=== PATIENT | male | born 1980 ===

== ENCOUNTER 2025-06-06 07:00 | Day surgery (SDC) | payer OTHER ==
[2025-05-29 08:08] VITALS: BP 114/79
[2025-05-29 08:45] LABS: URINE APPEARANCE Clear; URINE BILIRRUBIN Negative (NEGATIVE); URINE BLOOD Negative; URINE COLOR Yellow; URINE KETONE Negative (NEGATIVE); URINE LEUKOCYTE Negative; URINE NITRATE Negative; URINE PROTEIN Negative (NEGATIVE); URINE UROBILINOGEN 0.2 E.U./dl
[2025-05-29 09:05] LABS: BASO % 0.7 % (0.1-1.2); EOS # 0.21 (0.04-0.54); EOS % 2.9 % (0.7-7.0); LYMPH # 2.82 (1.18-3.74); LYMPH % 38.6 % (19.3-53.1); MEAN PLATELET VOLUME 10.10 fl (9.4-12.4); MONO # 0.77 (0.24-0.82); MONO % 10.5 % (4.7-12.5); NEUT # 3.43 (1.56-6.13); NEUT % 47.0 % (34.0-71.1); RED CELL DISTRIBUTION WIDTH 13.6 % (11.6-14.4)
[2025-05-29 09:15] LABS: INR 1.07
[2025-05-29 09:27] LABS: URINE BACTERIA 1.1 uL (0.0-1933); URINE CAST 0.43 uL (0.0-1.40); URINE EPITHELIAL CELLS 0.4 uL (0.0-38.8); URINE GLUCOSE >=1000 MG/DL (NEGATIVE); URINE RBC 1.1 uL (0.0-20.8); URINE WBC 0.2 uL (0.0-23.2)
[2025-05-29 09:56] LABS: ALT/SGPT 37.0 U/L (12-78); AST/SGOT 25.0 U/L (15-37); BILIRUBIN TOTAL 0.37 mg/dL (0.3-1.2); BUN CREA RATIO 29.0 (7.0-25.0); CREATININE SERUM 0.92 mg/dL (0.70-1.30); GFR 88.57; GLOBULINA 3.0 G/DL (2.4-3.5); GLUCOSE FASTING 93.0 mg/dL (65-100); OSMOLALITY SERUM 288.0 MOSM/KG (275-295)
[~2025-06-06] VITALS: Ht 175.3 cm; Wt 72.6 kg
[~2025-06-06 07:00] MED LIST: CARVEDILOL25 MG; ENTRESTO 49 MG1 EACH PO; INSPRA25 MG PO; JARDIANCE10 MG PO
[2025-06-06] MEDS ORDERED: LIDOCAINE HCL 1% 20 ML VIAL IJ ONE (12:00)
[2025-06-06] MEDS ORDERED: CEFAZOLIN SODIUM 1,000 MG VIAL IV ONE (12:00)
[2025-06-06] MEDS ORDERED: LIDOCAINE HCL 1%/EPINEPHRINE 20ML VIAL IJ ONE (12:00)
== END 2025-06-06 13:00 | disposition home or self-care (01) ==
LOC: CIR.AMB 07:00
PROVIDERS: ATTEND Surgery
DX: D17.1 Benign lipomatous neoplasm of skin and subcutaneous tissue of trunk (principal); D17.79 Benign lipomatous neoplasm of other sites; R22.2 Localized swelling, mass and lump, trunk